=== PATIENT | female | born 1965 | race Caucasian/White ===

== ENCOUNTER 2017-01-28 11:36 | Observation (INO) | payer BC ==
[2017-01-28 13:35] LABS: Mean Cell Volume 88.2 fl (78-100); Mean Corpuscular Hemoglobin 30.7 pg (26-32); Mean Platelet Volume 9.2 fl (6-9.5); Platelet Count 181 K/mm3 (150-450); Red Blood Count 4.56 M/mm3 (4.1-5.4); Red Cell Distribution Width 12.5 % (11.5-14.0); White Blood Count 6.8 K/mm3 (4.0-10.5)
[2017-01-28 14:04] LABS: ATYPICAL LYMPHS 1 %; Eosinophil 3 % (0.00-3.0); Platelet Estimate NORMAL (NORMAL); Total Cells Counted 100
[2017-01-28 14:15] LABS: ANION GAP 13.2 MEQ/L (5-15); BLOOD UREA NITROGEN 8 mg/dL (9-20); CHLORIDE 100 mEq/L (98-107); Carbon Dioxide 27.6 mEq/L (21-32); Glucose 89 MG/DL (70-110); Potassium 3.7 mEq/L (3.5-5.1); SODIUM 137 mEq/L (136-145)
[2017-01-28] MEDS ORDERED: Sodium Chloride 0.9% 10 ML FLUSH Syringe IV PRN (14:33)
[2017-01-28] MEDS: ROCEPHIN 1 Gm-D5w 50 ml Bag** 1 G/50 ML IVPB IV SCH (14:53)
[2017-01-28] MEDS: TYLENOL 325 MG PO PRN (15:06)
[2017-01-28] MEDS: Zithromax 500 MG/ 250 ML NaCl Premix 500 MG/250 ML IVPB IV SCH (15:34)
[2017-01-28] MEDS: Robitussin AC Syrup Unit Dose Cup PO PRN (20:58)
[2017-01-28] MEDS ORDERED: FISH OIL PO SCH (22:00)
[2017-01-28] MEDS ORDERED: EPA PO SCH (22:00)
[2017-01-28] MEDS ORDERED: DHA PO SCH (22:00)
[2017-01-28] MEDS ORDERED: NON-FORMULARY ITEM (Pravastatin Sodium [Pravastatin Sodium] 20 MG) PO SCH (22:00)
[2017-01-28] MEDS: FISH OIL 1,000 MG CAPSULE PO SCH (22:52)
[2017-01-28] MEDS: ZOCOR 20MG PO SCH (22:52)
[2017-01-28] MEDS: Zestril 10 MG PO SCH (22:52)
[2017-01-28] MEDS: Sodium Chloride 0.9% 10 ML FLUSH Syringe IV SCH (22:53)
--- NOTE | 2017-01-29 00:37 | XRAY ---
Exam: Two-view chest from 01/28/2017. Comparison: None. Indication: Pneumonia. Findings: Upright PA and lateral chest films are submitted for evaluation. The heart size and contour are normal. The lungs are adequately inflated. The kale and mediastinal structures appear unremarkable. The pulmonary vascularity is normal. I see no focal air space infiltrates to suggest pneumonia. No pneumothorax or pleural effusion is seen. The visualized bones appear grossly intact. Impression: 1. No air space infiltrates are seen to suggest focal pneumonia. No other acute cardiopulmonary process is seen.
[2017-01-29] MEDS: Robitussin AC Syrup Unit Dose Cup PO PRN ×5 (03:22→22:39)
[2017-01-29] MEDS: TYLENOL 325 MG PO PRN (04:06)
[2017-01-29] MEDS: ROCEPHIN 1 Gm-D5w 50 ml Bag** 1 G/50 ML IVPB IV SCH (09:22)
[2017-01-29] MEDS: Sodium Chloride 0.9% 10 ML FLUSH Syringe IV SCH ×2 (09:23→14:43)
[2017-01-29] MEDS: FISH OIL 1,000 MG CAPSULE PO SCH ×2 (09:23→22:36)
[2017-01-29] MEDS: NORVASC 5 MG PO SCH (09:23)
[2017-01-29] MEDS: ECOTRIN 81 MG PO SCH (09:23)
[2017-01-29] MEDS: Zithromax 500 MG/ 250 ML NaCl Premix 500 MG/250 ML IVPB IV SCH (09:55)
--- NOTE | 2017-01-29 12:09 | PCM.NOTE ---
Date and Time: 01/29/17 1208 Subjective Assessment: feeling better - Review of Systems Constitutional: No Fever, No Chills Eyes: No Symptoms Ears, Nose, & Throat: No Symptoms Respiratory: Cough, No Short Of Breath Cardiac: No Chest Pain, No Edema, No Syncope Abdominal/Gastrointestinal: No Abdominal Pain, No Nausea, No Vomiting, No Diarrhea Genitourinary Symptoms: No Dysuria Musculoskeletal: No Back Pain, No Neck Pain Skin: No Rash Neurological: No Dizziness, No Focal Weakness, No Sensory Changes Psychological: No Symptoms Endocrine: No Symptoms Hematologic/Lymphatic: No Symptoms Immunological/Allergic: No Symptoms Objective Exam General Appearance: no apparent distress, alert Neurologic Exam: alert, oriented x 3, cooperative, normal mood/affect, nml cerebellar function, sensation nml, No motor deficits Skin Exam: normal color, warm, dry Eye Exam: PERRL, EOMI, eyes nml inspection Ears, Nose, Throat Exam: normal ENT inspection, pharynx normal, moist mucous membranes Neck Exam: normal inspection, non-tender, supple, full range of motion Respiratory Exam: normal breath sounds, lungs clear, No respiratory distress Cardiovascular Exam: regular rate/rhythm, normal heart sounds Gastrointestinal/Abdomen Exam: soft, No tenderness, No mass Extremity Exam: normal inspection, normal range of motion Back Exam: normal inspection, normal range of motion, No CVA tenderness, No vertebral tenderness Pelvic Exam: deferred Rectal Exam: deferred OBJECTIVE DATA Vital Signs: Vital Signs - 24 hr Temp Pulse Resp BP Pulse Ox 01/29/17 08:06 98.2 F 73 18 138/60 96 01/29/17 04:24 98.6 F 87 16 122/89 97 01/29/17 00:00 98.2 F 61 18 116/63 97 01/28/17 23:53 16 01/28/17 20:00 98.4 F 66 16 114/60 93 L 01/28/17 16:00 98.6 F 125 H 20 136/86 94 L 01/28/17 14:45 67 16 98 01/28/17 14:16 70 14 98 01/28/17 12:09 97.8 F 74 18 164/74 95 Pain Assessment - Last Documented Pain Intensity 6 Pain Scale Used 0-10 Pain Scale Intake and Output: Intake & Output 01/27/17 01/28/17 01/29/17 01/30/17 11:59 11:59 11:59 11:59 Intake Total 1380 Output Total 2500 Balance -1120 Weight 64.864 kg Lab Results: Lab Results-Last 24 Hours 01/28/17 01/28/17 Range/Units 13:28 13:28 WBC 6.8 (4.0-10.5) K/mm3 RBC 4.56 (4.1-5.4) M/mm3 Hgb 14.0 (12.0-16.0) gm/dl Hct 40.2 (35-47) % MCV 88.2 (78-100) fl MCH 30.7 (26-32) pg MCHC 34.8 (32-36) g/dl RDW 12.5 (11.5-14.0) % Plt Count 181 (150-450) K/mm3 MPV 9.2 (6-9.5) fl Segmented Neutrophils 54 (36.0-66.0) % Lymphocytes (Manual) 36 (24-44) % Monocytes (Manual) 6 (0.0-12.0) % Eosinophils (Manual) 3 (0.00-3.0) % Differential Comment NORMAL Atypical Lymphocytes 1 % Platelet Estimate NORMAL (NORMAL) Sodium 137 (136-145) mEq/L Potassium 3.7 (3.5-5.1) mEq/L Chloride 100 (98-107) mEq/L Carbon Dioxide 27.6 (21-32) mEq/L Anion Gap 13.2 (5-15) MEQ/L BUN 8 L (9-20) mg/dL Creatinine 0.74 (0.55-1.30) mg/dl Estimated GFR > 60 ML/MIN Glucose 89 (70-110) MG/DL Calcium 9.4 (8.5-10.1) mg/dL Radiology Exams: Radiology Procedures Category Date Time Status CHEST 2 VIEWS (PA AND LAT) Stat Exams 01/28/17 13:15 Completed Multi-Disciplinary Progress Notes: Multi-Disciplinary Progress Notes 01/28/17 18:19 RT Documentation Review by Lisa Castellano RT Interventions/Assessments/Treatments RT-Flutter Therapy Start: 01/28/17 14: 31 Freq: UD Status: Active Document 01/28/17 14:45 ST (Rec: 01/28/17 14:51 ST [email or web address]) Respiratory Assessment-RT Respiratory Treatment Given-RT Yes Date-RT 01/28/17 Time-RT 14:47 Diagnosis-RT pneumonia Pulmonary History-RT NONE Home Respiratory Medications and Oxygen- NONE RT O2 Delivery Room Air O2 Sat by Pulse Oximetry (95-100) 98 Resting Yes Pulse Rate (60-90 beats/min) 67 Respiratory Rate (12-24 breaths/min) 16 Respiratory Effort-RT Easy Posterior Bilateral Throughout Phase Inspiratory & Expiratory Breath Sounds-RT Diminished Anterior Bilateral Throughout Phase Inspiratory & Expiratory Breath Sounds-RT Diminished Cough Description-RT Productive Sputum Amount Moderate Color Yellow Consistency Thick Mental Status-RT Alert Last Chest X-Ray Results-RT NO REPORT AT THIS TIME Respiratory Symptoms-RT No Difficulties Difficulty Clearing Secretions Continue Therapy as Ordered-RT Yes Goals-RT Mobilize Secretions Comments-RT pt resting in bed with call light near. Flutter Therapy-RT Yes Respiratory Therapy Consult-RT Start: 01/28/17 13: 15 Text: RT TO Screen and Evaluate Status: Complete Freq: ROUTINE Document 01/28/17 14:16 ST (Rec: 01/28/17 14:25 ST [email or web address]) Respiratory Assessment-RT RT Evaluation-RT Initial Evaluation Respiratory Treatment Given-RT No Date-RT 01/28/17 Time-RT 02:19 O2 Delivery Room Air O2 Sat by Pulse Oximetry (95-100) 98 Resting Yes Pulse Rate (60-90 beats/min) 70 Respiratory Rate (12-24 breaths/min) 14 Respiratory Effort-RT Easy Posterior Bilateral Throughout Phase Inspiratory & Expiratory Breath Sounds-RT Diminished Cough Description-RT Productive Cough Frequency-RT Intermittent Sputum Amount Moderate Color Yellow Consistency Thin Mental Status-RT Alert Respiratory Symptoms-RT No Difficulties Comment-RT pastient was resting in bed has productive cough diminished could benefit from a flutter device. Document 01/28/17 14:45 ST (Rec: 01/28/17 14:51 ST [email or web address]) Respiratory Assessments/Treatments reviewed by Lisa Castellano on 01/28/17 at 1819. Initialized on 01/28/17 18:19 - END OF NOTE Assessment/Plan (1) Bronchitis Current Visit: Yes Status: Acute Assessment & Plan: continue present management Code(s): J40 - BRONCHITIS, NOT SPECIFIED ACUTE OR CHRONIC
[2017-01-29] MEDS: Zestril 10 MG PO SCH (22:36)
[2017-01-29] MEDS: ZOCOR 20MG PO SCH (22:37)
[2017-01-30] MEDS: Robitussin AC Syrup Unit Dose Cup PO PRN ×2 (04:20→09:02)
[2017-01-30] MEDS: Sodium Chloride 0.9% 10 ML FLUSH Syringe IV SCH ×2 (04:51)
[2017-01-30 05:27] VITALS: O2SAT 96
[2017-01-30 08:25] VITALS: BP 111/58; PULSE 64
--- NOTE | 2017-01-30 08:47 | PCM.DS ---
Discharge Summary Date of Admission: 01/28/17 11:36 Admitting Physician: ROCK BOOKER Primary Care Provider: ROCK BOOKER Allergies Allergies bacitracin [From Neosporin ([id number])] Allergy (Mild, Verified 01/28/17 12: 43) Rash neomycin [From Neosporin ([id number]-[id number])] Allergy (Mild, Verified 01/28/17 12:43 ) Rash Penicillins Allergy (Mild, Verified 01/28/17 12:43) Rash polymyxin B [From Neosporin ([id number])] Allergy (Mild, Verified 01/28/17 12 :43) Rash Hospital Summary - Hospital Course Hospital Course: Chief Complaint Diagnosis pneumonia Allergies Allergy/AdvReac Type Severity Reaction Status Date / Time bacitracin Allergy Mild Rash Verified 01/28/17 12:43 [From Neosporin ([id number])] neomycin Allergy Mild Rash Verified 01/28/17 12:43 [From Neosporin ([id number])] Penicillins Allergy Mild Rash Verified 01/28/17 12:43 polymyxin B Allergy Mild Rash Verified 01/28/17 12:43 [From Neosporin ([id number]-zfh-[id number])] Vital Signs (Last 24 hours) Temp Pulse Resp BP Pulse Ox 01/30/17 08:00 97.9 F 64 18 111/58 96 01/30/17 04:00 97.9 F 76 16 122/60 96 01/30/17 00:20 98.1 F 78 16 126/63 98 01/29/17 20:00 97.9 F 76 18 139/65 97 01/29/17 16:00 98.2 F 66 19 113/74 96 01/29/17 12:15 97.8 F 66 19 110/66 96 Home Medications Medication Instructions Recorded Confirmed Last Taken Type Amlodipine Besylate 5 mg 5 mg PO DAILY 01/28/17 01/28/17 01/28/17 09:00 History [Norvasc 5 mg] Aspirin [Adult Low Dose Aspirin EC] 81 mg PO DAILY 01/28/17 01/28/17 01/27/17 09 :00 History Fish Oil/Dha/Epa [Fish Oil 1,200 1,200 mg PO BID 01/28/17 01/28/17 01/27/17 21: 00 History mg Fish Oil] Lisinopril 10 mg [Zestril 10 10 mg PO HS 01/28/17 01/28/17 01/27/17 20:00 History MG] Pravastatin Sodium 20 mg PO HS 01/28/17 01/28/17 01/27/17 21:00 History Current Medications Generic Name Dose Route Start Last Admin Trade Name Freq PRN Reason Stop Dose Admin Acetaminophen 650 mg 01/28/17 14:38 01/29/17 04:06 Tylenol 325 Mg PO 02/27/17 14:37 650 mg Q4H PRN PRN Administration PAIN, FEVER, HEADACHE Amlodipine Besylate 5 mg 01/29/17 10:00 01/29/17 09:23 Norvasc 5 Mg PO 02/28/17 09:59 5 mg DAILY STEVE Administration Aspirin 81 mg 01/29/17 10:00 01/29/17 09:23 Ecotrin 81 Mg PO 02/28/17 09:59 81 mg DAILY STEVE Administration Fish Oil 1,000 mg 01/28/17 22:00 01/29/17 22:36 Fish Oil 1,000 Mg Capsule PO 02/27/17 21:59 1,000 mg BID STEVE Administration Guaifenesin/Codeine Phosphate 5 ml 01/28/17 20:52 01/30/17 04:20 Robitussin Ac Syrup Unit Dose Cup PO 02/27/17 20:51 5 ml Q4H PRN PRN Administration COUGH Ceftriaxone Sodium/Dextrose 1 g in 50 mls @ 100 mls/hr 01/28/17 13:30 09:22 Rocephin 1 Gm-D5w 50 Ml Bag IV 02/27/17 13:29 100 mls/hr Q24H10 STEVE Administration Azithromycin 500 mg in 250 mls @ 125 mls/hr 01/28/17 13:30 01/29/17 09:55 Zithromax 500 Mg/ 250 Ml Nacl Premix IV 02/27/17 13:29 125 mls/hr DAILY STEVE Administration Lisinopril 10 mg 01/28/17 22:00 01/29/17 22:36 Zestril 10 Mg PO 02/27/17 21:59 10 mg HS STEVE Administration Simvastatin 20 mg 01/28/17 22:00 01/29/17 22:37 Zocor 20mg PO 02/27/17 21:59 20 mg HS STEVE Administration Sodium Chloride 10 ml 01/28/17 22:00 01/30/17 04:51 Sodium Chloride 0.9% 10 Ml Flush Syringe IV 02/27/17 21:59 10 ml Q8HT STEVE Administration Sodium Chloride 10 ml 01/28/17 14:33 Sodium Chloride 0.9% 10 Ml Flush Syringe IV 02/27/17 14:32 PRN PRN Intake & Output (Last 24 hours) 01/27/17 01/28/17 01/29/17 01/30/17 11:59 11:59 11:59 11:59 Intake Total 1380 2160 Output Total 2500 3200 Balance -1120 -1040 Weight 64.864 kg Orders (Last 24 hours) Category Date Time Status Amlodipine Besylate 5 mg [Norvasc 5 mg] Med 01/29/17 10:00 Active 5 mg PO DAILY Aspirin EC 81 mg [Ecotrin 81 mg] Med 01/29/17 10:00 Active 81 mg PO DAILY - Vitals & Intake/Output Vital Signs: Vital Signs Temperature 97.9 F 01/30/17 08:00 Pulse Rate 64 01/30/17 08:00 Respiratory Rate 18 01/30/17 08:00 Blood Pressure 111/58 01/30/17 08:00 O2 Sat by Pulse Oximetry 96 01/30/17 08:00 Intake & Output: Intake & Output 01/27/17 01/28/17 01/29/17 01/30/17 11:59 11:59 11:59 11:59 Intake Total 1380 2160 Output Total 2500 3200 Balance -1120 -1040 Weight 64.864 kg - Lab Result Diagrams: 01/28/17 13:28 01/28/17 13:28 - Radiology Exams Ordered Rad Exams-Entire Visit: Radiology Procedures Category Date Time Status CHEST 2 VIEWS (PA AND LAT) Stat Exams 01/28/17 13:15 Completed - Procedures and Test Procedures and Tests throughout Hospitalization: Therapy Orders & Screens 01/28/17 13:15 Respiratory Therapy Consult ROUTINE Comment: Reason For Exam: Diagnosis: pneumonia 01/28/17 14:31 Flutter Therapy UD Comment: [facility] [place] Diagnosis: pneumonia Discharge Exam General Appearance: no apparent distress, alert Neurologic Exam: alert, oriented x 3, cooperative, normal mood/affect, nml cerebellar function, sensation nml, No motor deficits Skin Exam: normal color, warm, dry Eye Exam: PERRL, EOMI, eyes nml inspection Ears, Nose, Throat Exam: normal ENT inspection, pharynx normal, moist mucous membranes Neck Exam: normal inspection, non-tender, supple, full range of motion Respiratory Exam: normal breath sounds, lungs clear, No respiratory distress Cardiovascular Exam: regular rate/rhythm, normal heart sounds Gastrointestinal/Abdomen Exam: soft, No tenderness, No mass Extremity Exam: normal inspection, normal range of motion Back Exam: normal inspection, normal range of motion, No CVA tenderness, No vertebral tenderness Pelvic Exam: deferred Rectal Exam: deferred Final Diagnosis/Problem List - Final Discharge Diagnosis/Problem (1) Bronchitis Current Visit: Yes Status: Resolved - Discharge Discharge Date: 01/30/17 Disposition: Home, Self-Care Condition: Stable Prescriptions: New Azithromycin [Zithromax] 250 mg PO DAILY #3 tablet Guaifenesin/Codeine Phos [Cheratussin AC Syrup] 5 ml PO QID #150 liquid Continue Fish Oil/Dha/Epa [Fish Oil 1,200 mg Fish Oil] 1,200 mg PO BID Pravastatin Sodium 20 mg PO HS Lisinopril 10 mg [Zestril 10 MG] 10 mg PO HS Amlodipine Besylate 5 mg [Norvasc 5 mg] 5 mg PO DAILY Aspirin [Adult Low Dose Aspirin EC] 81 mg PO DAILY Follow up with: ARIES MCCORMACK [ACTIVE STAFF] - 02/09/17 11:15 am
[2017-01-30] MEDS: ECOTRIN 81 MG PO SCH (09:02)
[2017-01-30] MEDS: NORVASC 5 MG PO SCH (09:02)
[2017-01-30] MEDS: FISH OIL 1,000 MG CAPSULE PO SCH (09:02)
[2017-01-30] MEDS: ROCEPHIN 1 Gm-D5w 50 ml Bag** 1 G/50 ML IVPB IV SCH (09:02)
[2017-01-30] MEDS: Zithromax 500 MG/ 250 ML NaCl Premix 500 MG/250 ML IVPB IV SCH (09:48)
== END 2017-01-30 11:27 | disposition home or self-care (01) ==
LOC: MED SURG 11:36
PROVIDERS: ADMIT General Practice; ATTEND General Practice
DX: I11.9 Hypertensive heart disease without heart failure (principal); J15.8 Pneumonia due to other specified bacteria
CPT/HCPCS: 36415; 71020; 80048; 85025; 87040; 94760; G0378; J0456; J0696; A9270-GY